=== PATIENT | female | born 1995 | race Caucasian/White ===

== ENCOUNTER 2018-08-30 03:29 | Emergency (ER) | payer OTHER ==
[2018-08-30 03:38] VITALS: BP 119/76; PULSE 110; RESP 20; TEMP 98.7
[2018-08-30] MEDS: LIDOCAINE 1% INJ 10MG/ML (20 ML MDV) SQ ONE (03:59)
[2018-08-30] MEDS: DIPH,PERTUS(ACELL)TETVAC-LF 0.5 ML VIAL IM ONE (03:59)
--- NOTE | 2018-08-30 04:37 | XR ---
EXAM: XR Right Tibia and Fibula, 2 Views CLINICAL HISTORY: ITS.REASON XR Reason: laceration with visible bone TECHNIQUE: Frontal and lateral views of the right tibia and fibula. COMPARISON: No relevant prior studies available. FINDINGS: Bones/joints: Unremarkable. No acute fracture. No dislocation. Soft tissues: Unremarkable. No radiopaque foreign body. IMPRESSION: Normal right tibia and fibula x-rays.
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
== END 2018-08-30 05:37 | disposition home or self-care (01) ==
LOC: EC 03:29
DX: S81.811A Laceration without foreign body, right lower leg, initial encounter (principal); S00.01XA Abrasion of scalp, initial encounter; F17.200 Nicotine dependence, unspecified, uncomplicated; Z23 Encounter for immunization; Z79.899 Other long term (current) drug therapy; W25.XXXA Contact with sharp glass, initial encounter; Y92.009 Unspecified place in unspecified non-institutional (private) residence as the place of occurrence of the external cause
CPT/HCPCS: 73590; 90715; 99283; 12004; 90471; J2001

== ENCOUNTER 2022-06-24 20:34 | Inpatient (IN) | payer MEDICAID, OTHER ==
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
[2022-06-24] MEDS ORDERED: ACETAMINOPHEN TAB 325 MG TAB PO PRN (23:01)
[2022-06-24] MEDS ORDERED: HALOPERIDOL LACTATE 5 MG/ML 1 ML VIAL IM PRN (23:01)
[2022-06-24] MEDS ORDERED: MAGNESIUM HYDROXIDE 2,400 MG/10 ML CUP PO PRN (23:01)
[2022-06-24] MEDS ORDERED: MAG HYDROX/AL HYDROX/SIMETH 30 ML CUP PO PRN (23:01)
[2022-06-24] MEDS ORDERED: LORazepam 2 MG/ML INJ IM PRN (23:05)
[2022-06-24] MEDS ORDERED: haloperidoL 5 MG TAB PO PRN (23:06)
--- NOTE | 2022-06-25 00:21 | P.PN ---
Progress Note - Text Progress Note Date: 06/25/22 unable to evaluate at this time, patient is uncooperative
[2022-06-25 07:24] LABS: ALT 24 U/L (4-34); AST 33 U/L (14-36); African American GFR (CKD) >90 (>60 ml/min/1.73 sqM); Albumin 4.9 g/dL (3.5-5.0); Alkaline Phosphatase 73 U/L (38-126); Anion Gap 10 mmol/L; Bilirubin, Delta 0.2 mg/dL (0.0-0.2); Bilirubin,Unconjugated 0.5 mg/dL (0.0-1.1); Blood Urea Nitrogen 10 mg/dL (7-17); Calcium 9.6 mg/dL (8.4-10.2); Carbon Dioxide 27 mmol/L (22-30); Chloride 106 mmol/L (98-107); Glucose 74 mg/dL (74-99); Non-African American GFR(CKD) >90 (>60 ml/min/1.73 sqM); Potassium 4.7 mmol/L (3.5-5.1); Sodium 143 mmol/L (137-145); Total Bilirubin 0.7 mg/dL (0.2-1.3); Total Protein 8.5 g/dL (6.3-8.2)
[2022-06-25 07:52] LABS: Basophils # (A) 0.1 k/uL (0-0.2); Basophils % (A) 2 %; Eosinophils % (A) 1 %; HCT 41.8 % (34.0-46.0); HGB 13.6 gm/dL (11.4-16.0); Lymphocytes # (A) 1.6 k/uL (1.0-4.8); Lymphocytes % (A) 37 %; MCHC 32.5 g/dL (31.0-37.0); MCV 92.1 fL (80.0-100.0); Mean Platelet Volume 9.8; Monocytes # (A) 0.4 k/uL (0-1.0); Monocytes % (A) 8 %; Neutrophils # (A) 2.2 k/uL (1.3-7.7); Neutrophils % (A) 49 %; Platelet Count 191 k/uL (150-450); RBC 4.54 m/uL (3.80-5.40); RDW 13.1 % (11.5-15.5); WBC 4.5 k/uL (3.8-10.6)
[2022-06-25] MEDS: NICOTINE 14MG/24HR PATCH TRANSDERM SCH (08:54)
[2022-06-25] MEDS: NICOTINE GUM (POLACRILEX) 2 MG GUM BUCCAL PRN ×4 (08:56→18:54)
[2022-06-25 11:33] LABS: Chol/HDL Ratio 2.93 Ratio; LDL Cholesterol,Calculated 110.7 mg/dL (0.0-131.0)
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
[2022-06-25] MEDS ORDERED: SERTRALINE 25 MG TAB PO SCH (21:00)
[2022-06-25] MEDS ORDERED: BACITRACIN OINT 1 EACH PACKET TOPICAL PRN (21:17)
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
[2022-06-26] MEDS: NICOTINE GUM (POLACRILEX) 2 MG GUM BUCCAL PRN ×3 (09:26→16:14)
[2022-06-26] MEDS: NICOTINE 14MG/24HR PATCH TRANSDERM SCH (09:27)
[2022-06-26 12:55] VITALS: BMI 23.1
--- NOTE | 2022-06-26 14:35 | P.PN ---
Progress Note - Text Progress Note Date: 06/26/22 Interval History: Patient was seen today taking part in activities group this afternoon. Patient claims that she was feeling very depressed and "emotional" before coming in the hospital. She explained that she attempted to harm herself by cutting herself. She claims that she does have a good support system at home. She was fairly focused on discharge. She also did complain about the food and states that she is beginning to not eat most things here in the hospital. She states that she s lept fairly well last night after the Zoloft. We talked about the therapeutic dose and the need for increasing to 50 mg which she was okay with. She is not reporting any other side effects at this time. She denies any suicidal or homicidal ideations intent or plan. She denies any auditory or visual hallucinations. She claims that her mood and anxiety have been gradually improving. General Appearance: Patient appears to be stated age, average hygiene and grooming, dressed in casual attire Behavior: Patient is seated without any agitated behavior. Attempts to cooperate. Speech: Patient's speech is fluent and non-pressured. Mood/Affect: Patient reports their mood is improving mildly, affect is congruent and constricted. Suicidality/Homicidality: Patient denies having any homicidal ideation intent or plan. Denies any suicidal ideation, intent or plan. Perceptions: Patient denies any visual hallucinations and denies any auditory hallucinations. Though content/process: There is no evidence of any delusional thought content and thought process is linear and goal-directed. No Discharge. Memory and concentration: AOX3, grossly intact for the purposes of this session Judgment and insight: improving mildly IMPRESSIONS: Major depressive disorder, recurrent, severe Unspecified anxiety disorder Self-harm behaviors nicotine dependence Plan: -Patient continues to meet criteria for inpatient psychiatric admission for symptom stabilization and safety. Patient has signed adult voluntary form and medication consent and was placed in patient's chart. -Medications: increase Zoloft 50 mg QHS for depression/anxiety. -When necessary Ativan and Haldol for agitation/aggression. -NRT - nicotine patch -SW on board for discharge planning. Encouraged the patient to participate in milieu. likely discharge tomorrow back home.
[2022-06-26] MEDS ORDERED: SERTRALINE 50 MG TAB PO SCH (21:00)
[2022-06-27] MEDS: LORazepam 1 MG TAB PO PRN ×2 (02:29→08:19)
[2022-06-27 06:59] VITALS: RESP 16; TEMP 98.2
[2022-06-27] MEDS: NICOTINE 14MG/24HR PATCH TRANSDERM SCH (07:52)
[2022-06-27 08:02] VITALS: BP 126/76; PULSE 117
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
[2022-06-27] MEDS: NICOTINE GUM (POLACRILEX) 2 MG GUM BUCCAL PRN (10:51)
== END 2022-06-27 13:02 | disposition home or self-care (01) | DRG 885 ==
LOC: EC 20:34 → 3MHU 22:58
PROVIDERS: ADMIT Psychiatry & Neurology Psychiatry; ATTEND Psychiatry & Neurology Psychiatry
DX: F33.2 Major depressive disorder, recurrent severe without psychotic features (principal); F17.200 Nicotine dependence, unspecified, uncomplicated; F31.9 Bipolar disorder, unspecified; F41.9 Anxiety disorder, unspecified; S51.812A Laceration without foreign body of left forearm, initial encounter; S61.519A Laceration without foreign body of unspecified wrist, initial encounter; X78.1XXA Intentional self-harm by knife, initial encounter; Z63.72 Alcoholism and drug addiction in family; Z79.899 Other long term (current) drug therapy; Z87.440 Personal history of urinary (tract) infections; Z91.51 Personal history of suicidal behavior; Z20.822 Contact with and (suspected) exposure to COVID-19
CPT/HCPCS: 80053; 80061; 82075; 82248; 83036; 84443; 85025; 87635; 99285

== ENCOUNTER 2022-09-16 19:00 | Emergency (ER) | payer MEDICAID, OTHER ==
[2022-09-16] MEDS ORDERED: ACETAMINOPHEN TAB 500 MG TAB PO STA (19:33)
[2022-09-16] MEDS ORDERED: SODIUM CHLORIDE 0.9% 1,000 ML IV STA (19:33)
--- NOTE | 2022-09-16 20:03 | ED ---
General Adult HPI - General Chief complaint: Vaginal Bleeding Stated complaint: Abd Pain&Vaginal Bleeding,14wks Preg Time Seen by Provider: 09/16/22 19:20 Source: patient, RN notes reviewed, old records reviewed Mode of arrival: ambulatory Limitations: no limitations - History of Present Illness Initial comments: Patient is a 27-year-old female who presents emergency Department complaining of abdominal cramping, vaginal bleeding. Patient states that the pain started a few days ago, however has worsened. Had an episode of spotting yesterday. Denies seeing any clots or tissue in the discharge. Does have a history of previous miscarriage. Patient is history of prior miscarriage. Is approximately 14 weeks this time. Presents after originally presented to another ER where ultrasound wasn't available there. Presents over concern for possible miscarriage. is also complaining of sore throat a mild upper respiratory congestion. is concerned she may have strep throat or viral syndrome. presents for further evaluation of this time. denies any fevers, shortness of breath. denies productive cough. denies chest pain. denies nausea or vomiting that acute. denies diarrhea. is taking vitamins. has been following up with her [employer] on a regular basis. presents for further evaluation at this time. - Related Data Previous Rx's Medication Instructions Recorded Nicotine 14Mg/24Hr Patch [Habitrol] 1 patch TRANSDERM DAILY 14 Days 06/27/22 patch Nicotine Gum (Polacrilex) 2 mg BUCCAL Q2HR PRN 28 Days 06/27/22 [Nicorette] pieceofgum Sertraline [Zoloft] 50 mg PO HS 30 Days tab 06/27/22 Allergies Allergy/AdvReac Type Severity Reaction Status Date / Time Milk Containing Products Allergy Vomiting Verified 06/26/22 09:32 [Dairy] sulfamethoxazole Allergy Rash/Hives Verified 06/24/22 22:15 [From Bactrim] trimethoprim [From Bactrim] Allergy Rash/Hives Verified 06/24/22 22:15 Review of Systems ROS Statement: Those systems with pertinent positive or pertinent negative responses have been documented in the HPI. Review of Systems: CONST: Denies fever EYES: Denies blurry vision ENT: Denies nasal congestion C/V: Denies Chest pain RESP: Denies shortness of breath GI: Endorses lower abdominal cramping. : Denies dysuria SKIN: Denies rash. MSK: Denies joint pain. NEURO: Denies headache ROS Other: All systems not noted in ROS Statement are negative. Past Medical History Past Medical History: No Reported History Additional Past Medical History / Comment(s): frequent UTI History of Any Multi-Drug Resistant Organisms: None Reported Past Surgical History: No Surgical Hx Reported Past Psychological History: Anxiety, Bipolar, Depression Smoking Status: Vaper Past Alcohol Use History: Occasional Past Drug Use History: Marijuana - Past Family History family Additional Family Medical History / Comment(s): alcohol abuse father General Exam - General Exam Comments Initial Comments: General: Appears in no acute distress. HEAD: Normal with no signs of head trauma. EYES: PERRLA, EOMI, conjunctiva normal, no discharge. ENT: Hearing grossly intact, normal oropharynx. RESPIRATORY: Clear breath sounds bilaterally. No wheezes, rales, or rhonchi. C/V: Regular rate and rhythm. Peripheral pulses 2+ intact throughout. S1 and S2 auscultated. ABD: Abdomen soft, nondistended. Mildly tender to palpation suprapubic region. No guarding. No peritoneal signs. No rebound tenderness. No CVA tenderness to percussion. EXT: Normal range of motion, no obvious deformity SKIN: No rashes or lesions observed on exposed skin. NEURO: Alert and oriented 4. Limitations: no limitations Course Vital Signs 09/16/22 09/16/22 19:01 21:28 Temperature 97.9 F 98.9 F Pulse Rate 107 H 86 Respiratory 20 17 Rate Blood Pressure 115/77 107/72 O2 Sat by Pulse 99 97 Oximetry Medical Decision Making - Medical Decision Making Was pt. sent in by a medical professional or institution (, PA, [employer], urgent care, hospital, or shelter...) When possible be specific @ -No Did you speak to anyone other than the patient for history (EMS, parent, family, police, friend...)? What history was obtained from this source @ -No Did you review nursing and triage notes (agree or disagree)? Why? @ -I reviewed and agree with nursing and triage notes Were old charts reviewed (outside hosp., previous admission, EMS record, old EKG, old radiological studies, urgent care reports/EKG's, shelter records)? Report findings @ -No old charts were reviewed Differential Diagnosis (chest pain, altered mental status, abdominal pain women, abdominal pain men, vaginal bleeding, weakness, fever, dyspnea, syncope, headache, dizziness, GI bleed, back pain, seizure, CVA, palpatations, mental health, musculoskeletal)? @ -Miscarriage, UTI, threatened , , upper respiratory infection. This list is not all inclusive. EKG interpreted by me (3pts min.). @ -None done X-rays interpreted by me (1pt min.). @ -None done CT interpreted by me (1pt min.). @ -None done U/S interpreted by me (1pt. min.). @ -Ultrasound interpreted by radiology reveals a viable IUP. estimated gestational age of 13 weeks and 4 days with a heart rate of 156 bpm. What testing was considered but not performed or refused? (CT, X-rays, U/S, labs)? Why? @ -None What meds were considered but not given or refused? Why? @ -None Did you discuss the management of the patient with other professionals (professionals i.e. , PA, [employer], lab, RT, psych nurse, social service director, tacker elastic band, teacher, home lending officer, case packer and sealer)? Give summary @ -No Was smoking cessation discussed for >3mins.? @ -No Was critical care preformed (if so, how long)? @ -No Were there social determinants of health that impacted care today? How? (Homelessness, low income, unemployed, alcoholism, drug addiction, transportation, low edu. Level, literacy, decrease access to med. care, fdc, rehab)? @ -No Was there de-escalation of care discussed even if they declined (Discuss DNR or withdrawal of care, Hospice)? DNR status @ -No What co-morbidities impacted this encounter? (DM, HTN, Smoking, COPD, CAD, Cancer, CVA, ARF, Chemo, Hep., AIDS, mental health diagnosis, sleep apnea, morbid obesity)? @ -None Was patient admitted / discharged? Hospital course, mention meds given and route, prescriptions, significant lab abnormalities, going to OR and other pertinent info. @ -Based on the patient's presentation and physical exam, I'm concerned for possible threatened miscarriage for the patient. She does wear history miscarriages. We will obtain basic labs, type and screen, quantitative beta hCG, as well as a ultrasound. She is also having upper respiratory symptoms and is requesting testing therefore we will obtain suffered swab as well as strep throat swab. She was in agreement this plan. She'll be symptomatically treated with 1 L fluid bolus as well as oral Tylenol for analgesia. Vital signs within acceptable limits. Patient's labs returned but viral swabs and strep throat swab have not yet been sent. Patient has not yet received her medications either due to nursing staff being busy with a complicated patient. I discussed the results with the patient. This includes ultrasound results. Patient's urine shows no obvious infection but appears to be contaminated catch. Patient's hemoglobin is within acceptable limits. Patient's blood type does not require rhogam therapy. as she is Rh +. Discusses the patient. I did offer her to stay for bilateral instructions throat swabs as well as treatment. However we will instead skipped the treatment and she feels fine and provided testing for strep throat and viral swabs. I will call her with results. She is expressing understanding she has a threatened miscarriage at this time. Discussed strict return precautions as well as advised follow-up with her [employer] in the next few days. She was in agreement with this plan. I did contact the patient over the phone and updated her that she does not have strep throat and Covid, flu, RSV were also negative. We discussed that a final diagnosis is threatened miscarriage. I instructed the patient to follow up with their PCP in the next 1-3 days. I explained that the patient should return to the emergency department if they experience any worsening symptoms. Strict return precautions were discussed with the patient. The patient expressed understanding of these instructions. I answered all questions that the patient had. The patient was discharged home in good condition with their prescriptions and follow up information. Undiagnosed new problem with uncertain prognosis? @ -No Drug Therapy requiring intensive monitoring for toxicity (Heparin, Nitro, Insulin, Cardizem)? @ -No Were any procedures done? @ -No Diagnosis/symptom? @ -Threatened miscarriage, 13 weeks Acute, or Chronic, or Acute on Chronic? @ -Acute Uncomplicated (without systemic symptoms) or Complicated (systemic symptoms)? @ -Uncomplicated Side effects of treatment? @ -none Exacerbation, Progression, or Severe Exacerbation] @ -no Poses a threat to life or bodily function? @ -Yes, potentially patient does have a miscarriage can be life-threatening in some situations. - Lab Data Result diagrams: 09/16/22 19:40 09/16/22 19:40 Lab Results 09/16/22 09/16/22 09/16/22 Range/Units 19:40 19:40 19:40 WBC 5.5 (3.8-10.6) k/uL RBC 4.17 (3.80-5.40) m/uL Hgb 12.5 (11.4-16.0) gm/dL Hct 36.9 (34.0-46.0) % MCV 88.5 (80.0-100.0) fL MCH 30.0 (25.0-35.0) pg MCHC 33.9 (31.0-37.0) g/dL RDW 12.1 (11.5-15.5) % Plt Count 185 (150-450) k/uL MPV 9.2 Neutrophils % 68 % Lymphocytes % 25 % Monocytes % 5 % Eosinophils % 2 % Basophils % 0 % Neutrophils # 3.7 (1.3-7.7) k/uL Lymphocytes # 1.3 (1.0-4.8) k/uL Monocytes # 0.3 (0-1.0) k/uL Eosinophils # 0.1 (0-0.7) k/uL Basophils # 0.0 (0-0.2) k/uL Sodium 136 L (137-145) mmol/L Potassium 3.7 (3.5-5.1) mmol/L Chloride 104 (98-107) mmol/L Carbon Dioxide 21 L (22-30) mmol/L Anion Gap 11 mmol/L BUN 7 (7-17) mg/dL Creatinine 0.34 L (0.52-1.04) mg/dL Est GFR (CKD-EPI)AfAm >90 (>60 ml/min/1.73 sqM) Est GFR (CKD-EPI)NonAf >90 (>60 ml/min/1.73 sqM) Glucose 98 (74-99) mg/dL Calcium 9.3 (8.4-10.2) mg/dL HCG, Quant 410104.0 mIU/mL Urine Color Yellow Urine Appearance Clear (Clear) Urine pH 6.0 (5.0-8.0) Ur Specific [place] 1.030 (1.001-1.035) Urine Protein Trace H (Negative) Urine Glucose (UA) Negative (Negative) Urine Ketones 1+ H (Negative) Urine Blood Negative (Negative) Urine Nitrite Negative (Negative) Urine Bilirubin Negative (Negative) Urine Urobilinogen <2.0 (<2.0) mg/dL Ur Leukocyte Esterase Small H (Negative) Urine RBC 2 (0-5) /hpf Urine WBC 1 (0-5) /hpf Ur Squamous Epith Cells 10 H (0-4) /hpf Calcium Oxalate Crystal Occasional H (None) /hpf Urine Bacteria Occasional H (None) /hpf Urine Mucus Many H (None) /hpf Influenza Type A (PCR) (Not Detectd) Influenza Type B (PCR) (Not Detectd) RSV (PCR) (Not Detectd) SARS-CoV-2 (PCR) (Not Detectd) Group A Strep (PCR) (Not Detectd) Blood Type Blood Type Recheck Bld Type Recheck Status Antibody Screen Spec Expiration Date 09/16/22 09/16/22 09/16/22 Range/Units 19:40 21:27 21:27 WBC (3.8-10.6) k/uL RBC (3.80-5.40) m/uL Hgb (11.4-16.0) gm/dL Hct (34.0-46.0) % MCV (80.0-100.0) fL MCH (25.0-35.0) pg MCHC (31.0-37.0) g/dL RDW (11.5-15.5) % Plt Count (150-450) k/uL MPV Neutrophils % % Lymphocytes % % Monocytes % % Eosinophils % % Basophils % % Neutrophils # (1.3-7.7) k/uL Lymphocytes # (1.0-4.8) k/uL Monocytes # (0-1.0) k/uL Eosinophils # (0-0.7) k/uL Basophils # (0-0.2) k/uL Sodium (137-145) mmol/L Potassium (3.5-5.1) mmol/L Chloride (98-107) mmol/L Carbon Dioxide (22-30) mmol/L Anion Gap mmol/L BUN (7-17) mg/dL Creatinine (0.52-1.04) mg/dL Est GFR (CKD-EPI)AfAm (>60 ml/min/1.73 sqM) Est GFR (CKD-EPI)NonAf (>60 ml/min/1.73 sqM) Glucose (74-99) mg/dL Calcium (8.4-10.2) mg/dL HCG, Quant mIU/mL Urine Color Urine Appearance (Clear) Urine pH (5.0-8.0) Ur Specific [place] (1.001-1.035) Urine Protein (Negative) Urine Glucose (UA) (Negative) Urine Ketones (Negative) Urine Blood (Negative) Urine Nitrite (Negative) Urine Bilirubin (Negative) Urine Urobilinogen (<2.0) mg/dL Ur Leukocyte Esterase (Negative) Urine RBC (0-5) /hpf Urine WBC (0-5) /hpf Ur Squamous Epith Cells (0-4) /hpf Calcium Oxalate Crystal (None) /hpf Urine Bacteria (None) /hpf Urine Mucus (None) /hpf Influenza Type A (PCR) Not Detected (Not Detectd) Influenza Type B (PCR) Not Detected (Not Detectd) RSV (PCR) Not Detected (Not Detectd) SARS-CoV-2 (PCR) Not Detected (Not Detectd) Group A Strep (PCR) NOT DETECTED (Not Detectd) Blood Type A Positive Blood Type Recheck A Pos Bld Type Recheck Status No Antibody Screen NEGATIVE Spec Expiration Date 09/19/20222339 Disposition Clinical Impression: Threatened miscarriage Disposition: HOME SELF-CARE Condition: Good Instructions (If sedation given, give patient instructions): Threatened Miscarriage (ED) Is patient prescribed a controlled substance at d/c from ED?: No Referrals: Toshia Martínez [Primary Care Provider] - 1-2 days Time of Disposition: 21:10
[2022-09-16 20:08] LABS: Basophils % (A) 0 %; Eosinophils # (A) 0.1 k/uL (0-0.7); Eosinophils % (A) 2 %; HCT 36.9 % (34.0-46.0); HGB 12.5 gm/dL (11.4-16.0); Lymphocytes # (A) 1.3 k/uL (1.0-4.8); Lymphocytes % (A) 25 %; MCHC 33.9 g/dL (31.0-37.0); MCV 88.5 fL (80.0-100.0); Mean Platelet Volume 9.2; Monocytes # (A) 0.3 k/uL (0-1.0); Monocytes % (A) 5 %; Neutrophils # (A) 3.7 k/uL (1.3-7.7); Neutrophils % (A) 68 %; Platelet Count 185 k/uL (150-450); RBC 4.17 m/uL (3.80-5.40); RDW 12.1 % (11.5-15.5); WBC 5.5 k/uL (3.8-10.6)
[2022-09-16 20:19] LABS: Potassium 3.7 mmol/L (3.5-5.1)
[2022-09-16 20:20] LABS: African American GFR (CKD) >90 (>60 ml/min/1.73 sqM); Anion Gap 11 mmol/L; Blood Urea Nitrogen 7 mg/dL (7-17); Calcium 9.3 mg/dL (8.4-10.2); Carbon Dioxide 21 mmol/L (22-30); Chloride 104 mmol/L (98-107); Glucose 98 mg/dL (74-99); Non-African American GFR(CKD) >90 (>60 ml/min/1.73 sqM); Sodium 136 mmol/L (137-145)
--- NOTE | 2022-09-16 20:25 | US ---
EXAMINATION TYPE: Transabdominal DATE OF EXAM: 09/16/2022 8:13 PM COMPARISON: NONE CLINICAL HISTORY: cramping, spotting, 13.5w preg. Cramping and bleeding EXAM PERFORMED: Transabdominal (TA) EXAM MEASUREMENTS: GESTATIONAL AGE / DATING Physician Established: (13 weeks/4 days) EDC: 03/20/2023 Dates by LMP: Unknown Dates by First Scan: This is 1st scan Dates by Current Scan for: (13 weeks/4 days) EDC: 03/20/2023 MATERNAL ANATOMY Uterus: 8.9 x 8.8 x 10.1cm Right Ovary: 3.0 x 2.2 x 2.0cm Left Ovary: 2.9 x 1.1 x 2.4cm Post CDS / Adnexa: wnl Presence of free fluid: no Presence of corpus luteal cyst: not seen Presence of subchorionic bleed: no GESTATION / SURVEY CRL: 7.4cm (13 weeks/4 days) Yolk Sac (normal less than 6mm): not seen Heart Rate: 156 bpm Rhythm: Normal IUP: Viable IUP Nuchal Translucency 10-14wks (normal less than 3mm): 2.5mm IMPRESSION: Single live intrauterine gestation with ultrasound age 13 weeks 4 days. Additional information as donovan cribed above.
[2022-09-16 20:36] LABS: Appearance,Urine Clear (Clear); Bacteria,Urine Occasional /hpf; Bilirubin,Urine Negative (Negative); Blood,Urine Negative (Negative); Calcium Oxalate Crystals,Urine Occasional /hpf; Color,Urine Yellow; Glucose,Urine (UA) Negative (Negative); Ketones,Urine 1+ (Negative); Leukocyte Esterase,Urine Small (Negative); Mucus,Urine Many /hpf; Nitrite,Urine Negative (Negative); Protein,Urine Trace (Negative); RBC,Urine 2 /hpf (0-5); Squamous Epithelial Cell,Urine 10 /hpf (0-4); Urobilinogen,Urine <2.0 mg/dL (<2.0); WBC,Urine 1 /hpf (0-5)
[2022-09-16 21:29] VITALS: BP 107/72; PULSE 86; RESP 17; TEMP 98.9
== END 2022-09-16 21:47 | disposition home or self-care (01) ==
LOC: EC 19:00
DX: O20.0 Threatened abortion (principal); O99.342 Other mental disorders complicating pregnancy, second trimester; F41.9 Anxiety disorder, unspecified; F31.9 Bipolar disorder, unspecified; O99.322 Drug use complicating pregnancy, second trimester; F12.90 Cannabis use, unspecified, uncomplicated; O99.332 Smoking (tobacco) complicating pregnancy, second trimester; F17.290 Nicotine dependence, other tobacco product, uncomplicated; Z91.011 Allergy to milk products; Z88.2 Allergy status to sulfonamides; Z20.822 Contact with and (suspected) exposure to COVID-19; Z3A.14 14 weeks gestation of pregnancy
CPT/HCPCS: 36415; 76801; 76813; 80048; 81001; 84702; 85025; 86850; 86900; 86901; 87636; 87651; 99284

== ENCOUNTER → 2023-02-07 | Outpatient (CLI) | payer OTHER ==
[2023-02-07 23:35] VITALS: BP 132/79; PULSE 94; RESP 16; TEMP 97.6
--- NOTE | 2023-03-30 09:36 | P.MSEPDOC ---
Presenting Problems - Arrival Data Date of Arrival on Unit: 02/07/23 Time of Arrival on Unit: 20:30 Mode of Transport: Ambulatory - Complaint OB-Reason for Admission/Chief Complaint: Pain Comment: pt presents with complaints of period like cramping continous since around. noon. states feeling is constant and not timeable does not come and go but does feel. belly tightening Medical History - Information : 2 Para: 0 Term: 0 : 0 Abortions: Spontaneous or Elective: 0 Number of Living Children: 0 - Gestational Age Gestational Age by PETR (wks/days): 34 Weeks and 1 Days Review of Systems - Review of Systems Constitutional: No problems Breast: No problems ENT: No problems Cardiovascular: No problems Respiratory: No problems Gastrointestinal: Constipation Genitourinary: No problems Musculoskeletal: No problems Neurological: No problems Skin: No problems Vital Signs - Temperature Temperature: 97.6 F Temperature Source: Tympanic - Pulse Right Pulse Rate: 94 Pulse Assessment Method: Automatic Cuff - Respirations Respiratory Rate: 16 Oxygen Delivery Method: Room Air O2 Sat by Pulse Oximetry: 98 - Blood Pressure Right Arm Blood Pressure: 132/79 Blood Pressure Mean: 96 Blood Pressure Source: Automatic Cuff Medical Screen Scoring - Cervical Exam Dilation (cm): 0 Effacement (%): 0 - Assessment - Baby A Baseline FHR: 140 Heart Rate - NICHD Category: Category I (Normal) NST: Reactive Physician Notification - Physician Notified Physician Notified Date: 02/07/23 Physician Notified Time: 22:00 Physician: Bety Garcia - Notification Comment Comment: Dr Garcia updated with pts reason for vist ( pt had called her prior to coming). of cramping, possible mucus plug, constipation. no contractions palpated or per monitor. cat 1FHT. Reacive NST, VSS. order received for DC home. keep appt for sunday. may take. mirialax and stool softeners over the counter. increase intake fruit and fiber, juices and water. try dried prunes Maternal Triage Index - Maternal Triage Index Presenting for scheduled procedure w/no complaint: No - Stat/Priority 1 Stat Priority 1: No - Urgent/Priority 2 Urgent Priority 2: No - Prompt/Priority 3 Prompt Priority 3: Yes Criteria Met for Priority 3: cramping pain Disposition - Disposition OB Disposition: Discharge to home Discharge Date: 02/07/23 Discharge Time: 22:20 I agree with the RN Medical Screening Exam: Yes Case reviewed; plan agreed upon as documented in EMR&OBIX.: Yes Diagnosis: FALSE LABOR BEFORE 37 COMPLETED WEEKS OF GEST, THIRD TRI
== END | disposition home or self-care (01) ==
LOC: FBPOP 20:30
PROVIDERS: ATTEND Obstetrics & Gynecology Obstetrics
DX: O47.03 False labor before 37 completed weeks of gestation, third trimester (principal); O99.333 Smoking (tobacco) complicating pregnancy, third trimester; F17.200 Nicotine dependence, unspecified, uncomplicated; Z3A.34 34 weeks gestation of pregnancy; Z88.2 Allergy status to sulfonamides; Z88.1 Allergy status to other antibiotic agents; Z91.011 Allergy to milk products
CPT/HCPCS: 59025; G0463; 99213

== ENCOUNTER 2023-02-13 15:56 | Outpatient (CLI) | payer OTHER ==
[2023-02-13 17:22] VITALS: BP 126/79; PULSE 105; RESP 18; TEMP 97.1
--- NOTE | 2023-02-23 15:33 | P.MSEPDOC ---
Presenting Problems - Arrival Data Date of Arrival on Unit: 02/13/23 Time of Arrival on Unit: 15:56 Mode of Transport: Ambulatory - Complaint OB-Reason for Admission/Chief Complaint: Pain Comment: Pt c/o sharp abdominal pain at fundus for last 5-6 hours Medical History - Information : 2 Para: 0 Term: 0 : 0 Abortions: Spontaneous or Elective: 2 Number of Living Children: 0 - Gestational Age Gestational Age by PETR (wks/days): 35 Weeks and 0 Days Review of Systems - Review of Systems Constitutional: No problems Breast: No problems ENT: No problems Cardiovascular: No problems Respiratory: No problems Gastrointestinal: No problems Genitourinary: No problems Musculoskeletal: No problems Neurological: No problems Skin: No problems Vital Signs - Temperature Temperature: 97.1 F Temperature Source: Temporal Artery Scan - Pulse Right Pulse Oximetery Pulse Rate: 105 Pulse Assessment Method: Pulse Oximetry - Respirations Respiratory Rate: 18 Oxygen Delivery Method: Room Air O2 Sat by Pulse Oximetry: 98 - Blood Pressure Right Arm Blood Pressure: 126/79 Blood Pressure Mean: 94 Blood Pressure Source: Automatic Cuff Medical Screen Scoring - Assessment - Baby A Baseline FHR: 145 Heart Rate - NICHD Category: Category I (Normal) NST: Reactive Physician Notification - Physician Notified Physician Notified Date: 02/13/23 Physician Notified Time: 16:27 Physician: Bhumi Maxwell Order Received: Yes - Notification Comment Comment: Pt is 35 and 0. c/o sharp abdominal pain at fundus for last 5-6 hours. C/o watery, warm, moist, foul smelling discharge for the past week. Pt states she has a history of BV early in her and that the discharge is similar. NSt reactive, no contractions felt per palpation or monitor Maternal Triage Index - Maternal Triage Index Presenting for scheduled procedure w/no complaint: No - Stat/Priority 1 Stat Priority 1: No - Urgent/Priority 2 Urgent Priority 2: No - Prompt/Priority 3 Prompt Priority 3: No - Non-Urgent/Priority 4 Non-Urgent Priority 4: Yes Criteria Met for Priority 4: c/o sharp abdominal pain at fundus for last 5-6 hours. C/o watery, warm, moist, foul smelling discharge for the past week. Disposition - Disposition OB Disposition: Discharge to home Discharge Date: 02/13/23 Discharge Time: 16:32 I agree with the RN Medical Screening Exam: Yes Physician's MSE Comment: I have neither seen nor examined the patient Case reviewed; plan agreed upon as documented in EMR&OBIX.: Yes Diagnosis: RELATED CONDITIONS, UNSPECIFIED, THIRD TRIMESTER
== END 2023-02-13 16:32 | disposition home or self-care (01) ==
LOC: FBPOP 15:56
PROVIDERS: ATTEND Obstetrics & Gynecology
DX: O26.893 Other specified pregnancy related conditions, third trimester (principal); O99.333 Smoking (tobacco) complicating pregnancy, third trimester; F17.200 Nicotine dependence, unspecified, uncomplicated; R10.9 Unspecified abdominal pain; Z3A.35 35 weeks gestation of pregnancy; Z88.2 Allergy status to sulfonamides; Z88.8 Allergy status to other drugs, medicaments and biological substances; Z91.011 Allergy to milk products
CPT/HCPCS: 59025; G0463; 99213

== ENCOUNTER 2023-02-28 15:40 | Inpatient (IN) | payer OTHER ==
[2023-02-28] MEDS ORDERED: miSOPROStoL 200 MCG TAB PO PRN (16:34)
[2023-02-28] MEDS ORDERED: TRANEXAMIC 1,000 MG/100ML-NACL 1,000 MG in EMPTY BAG 1 BAG IV PRN (16:34)
[2023-02-28] MEDS ORDERED: OXYTOCIN 10 UNIT/ML 1 ML VIAL IM PRN (16:34)
[2023-02-28] MEDS ORDERED: CARBOPROST TROMETHAMINE 250 MCG/ML 1 ML AMP IM PRN (16:34)
[2023-02-28] MEDS ORDERED: TERBUTALINE 1 MG/ML VIAL SQ PRN (16:34)
[2023-02-28] MEDS ORDERED: METHYLERGONOVINE 0.2 MG/ML 1 ML AMP IM PRN (16:34)
[2023-02-28] MEDS ORDERED: LIDOCAINE 0.5% (PF) 5 MG/ML (50 ML SDV) SQ PRN (16:34)
[2023-02-28] MEDS: LACTATED RINGERS 1,000 ML IV SCH ×2 (16:40→21:49)
[2023-02-28] MEDS ORDERED: OXYTOCIN 30 UNITS/500 ML NS 30 UNIT in SALINE 1 500ML.BAG IV SCH (16:45)
[2023-02-28 17:28] LABS: Basophils % (A) 0 %; Eosinophils # (A) 0.1 k/uL (0-0.7); Eosinophils % (A) 1 %; HCT 30.3 % (34.0-46.0); HGB 9.8 gm/dL (11.4-16.0); Hypochromasia Moderate; Lymphocytes # (A) 1.3 k/uL (1.0-4.8); Lymphocytes % (A) 14 %; MCH 26.4 pg (25.0-35.0); MCHC 32.3 g/dL (31.0-37.0); MCV 81.6 fL (80.0-100.0); Mean Platelet Volume 10.5; Monocytes # (A) 0.3 k/uL (0-1.0); Monocytes % (A) 4 %; Neutrophils # (A) 7.3 k/uL (1.3-7.7); Neutrophils % (A) 80 %; Platelet Count 275 k/uL (150-450); Poikilocytosis Slight; RBC 3.72 m/uL (3.80-5.40); RDW 14.6 % (11.5-15.5); WBC 9.1 k/uL (3.8-10.6)
--- NOTE | 2023-02-28 17:33 | P.HPOB ---
History of Present Illness H&P Date: 02/28/23 Chief Complaint: Medical induction for Intrahepatic Cholestasis of Ms. Anna is a 27 year old at 37 weeks and 1 day with EDC of 03/20/2023 (by LMP c/w 8 weeks US) presenting for medical induction of labor for newly diagnosed Intraheptaic Cholestasis of . The patient was seen in the office on Sunday and complained of full-body pruritus that kept her awake at night and did not spare the palms and soles. Bile acids were checked and found to be elevated to 17. Additionally, the patient has a history of anxiety and depression not on any medications. The has been otherwise uncomplicated. The fetus is estimated in the 44%ile by a 33 week US. Obstetric history: 1st trimester SAB Maternal work-up: blood type A positive, antibody screen negative, rubella UNKNOWN, VDRL non-reactive, HBsAg negative, HIV negative, gonorreah neg ative, chlamydia negative, 1 hour GTT within normal limits. TDap declined. GBS still pending. Past Medical History Past Medical History: No Reported History Additional Past Medical History / Comment(s): frequent UTI History of Any Multi-Drug Resistant Organisms: None Reported Past Surgical History: No Surgical Hx Reported Past Psychological History: Anxiety, Bipolar, Depression Smoking Status: Former smoker Past Alcohol Use History: Occasional Past Drug Use History: Marijuana - Past Family History family Additional Family Medical History / Comment(s): alcohol abuse father Medications and Allergies Home Medications Medication Instructions Recorded Confirmed Type Vit No.179/Iron/Folic 02/28/23 History [ Tablet] diphenhydrAMINE [Benadryl] 50 mg PO DIRECTED PRN 02/28/23 02/28/23 History Allergies Allergy/AdvReac Type Severity Reaction Status Date / Time sulfamethoxazole Allergy Severe Rash/Hives Verified 02/28/23 16:09 [From Bactrim] trimethoprim [From Bactrim] Allergy Severe Rash/Hives Verified 02/28/23 16:09 Milk Containing Products Allergy Vomiting Verified 02/28/23 16:09 [Dairy] Exam Intake and Output 02/28/23 02/28/23 02/28/23 06:59 14:59 22:59 Other: Weight 72.575 kg Focused physical exam is performed. This is a healthy-appearing in no apparent distress. Abdomen is gravid and non-tender. Cervical exam is closed, long, and high. Cooks catheter is placed through the cervix and 60cc are inserted into each balloon. Extremities are non-tender and non-edematous. heart tones are reactive and reassuring. Tocometer is not graphing any contractions. Assessment and Plan Assessment: 27 year old at 37 weeks and 1 day being medically induced for ICP Plan: Admit, NPO, mIVF, cooks catheter x12 hours, low-dose pitocin until cooks is removed, IV nubain prn. GBS unknown, will not treat unless rupture for more than 18 hours as patient has not risk factors otherwise. Continuous EFM and tocometer. Close monitoring of patient. Time with Patient: Less than 30 (20 minutes)
[2023-02-28] MEDS: NALBUPHINE 10 MG/ML (10 ML MDV) IV PRN ×2 (20:07→23:52)
[2023-02-28] MEDS: diphenhydrAMINE 50 MG/ML 1 ML VIAL IVP PRN (21:49)
[2023-03-01] MEDS: NALBUPHINE 10 MG/ML (10 ML MDV) IV PRN ×2 (04:04→08:19)
[2023-03-01] MEDS ORDERED: fentaNYL (PF) 50 MCG/ML 5 ML AMP ONE (08:58)
[2023-03-01] MEDS ORDERED: ROPIVACAINE 5 MG/ML 30 ML VIAL ONE (08:58)
[2023-03-01] MEDS ORDERED: SODIUM CHLORIDE 0.9% 250 ML BAG ONE (08:58)
[2023-03-01] MEDS: LACTATED RINGERS 1,000 ML IV SCH ×2 (10:00→17:57)
[2023-03-01] MEDS: AMPICILLIN 2,000 MG in SODIUM CHLORIDE 0.9% 100 ML IVPB SCH (19:12)
[2023-03-01] MEDS ORDERED: GENTAMICIN 300 MG in SODIUM CHLORIDE 0.9% 100 ML IVPB SCH (20:30)
--- NOTE | 2023-03-01 21:17 | P.PROBDLV ---
Vaginal Delivery Note - . Vaginal Delivery Note: DATE OF SERVICE: 03/01/2023 PROCEDURE: Normal Vaginal Delivery ATTENDING: Dr. Bhumi Maxwell MD ESTIMATED BLOOD LOSS: 300 mL FINDINGS: VFI, Apgars 8/9. Weight 6 pounds and 4 ounces (2850 grams) PROCEDURE: Ms. Anna is a 27 year old at 37 weeks and 2 days who presented to labor and delivery for medical induction of labor for Intrahepatic Cholestasis of . The has been otherwise uncomplicated. For further details, please review the admitting H&P. A cooks catheter was placed for 12 hours with oxytocin. Once removed, AROM was performed at 827 revealing clear fluid. The patient received epidural anesthesia per her request. The deyvi ent spiked a fever of 100.5 and the heart tones became tachycardic. IV Ampicillin and Getamicin were given for chorioamnionitis. The patient was completely dilated at 1826. She pushed effectively for approximately 2 hours. The head crowned over the perineum followed by shoulders and body of the infant. A viable female infant was delivered at 2046. The infant was placed on the maternal abdomen and bulb suctioned. Cord was clamped and cut after a 30- second delay. Placenta was delivered whole with gentle cord traction at 2049. Oxytocin was started to facilitate uterine tone. Uterine fundus was found to be firm and below the umbilicus upon fundal massage. Thorough examination of the cervix, vagina, periurethral area, and perineum revealed a midline second degree laceration. This laceration was repaired with 2-0 Vicryl in the usual fashion. The patient is stable and allowed to begin the bonding process. Patient stable .
[2023-03-01] MEDS ORDERED: BENZOCAINE/MENTHOL SPRAY 1 GM/SPRAY AEROSOL TOPICAL PRN (21:18)
[2023-03-01] MEDS ORDERED: diphenhydrAMINE 50 MG/ML 1 ML VIAL IVP PRN ×2 (21:18)
[2023-03-01] MEDS ORDERED: diphenhydrAMINE 25 MG CAP PO PRN (21:18)
[2023-03-01] MEDS ORDERED: LANOLIN CREAM 5 GM TUBE TOPICAL PRN (21:18)
[2023-03-01] MEDS ORDERED: HYDROCORTISONE 2.5% RECTAL CREAM 30 GM TUBE RECTAL PRN (21:18)
[2023-03-01] MEDS ORDERED: ZOLPIDEM 5 MG TAB PO PRN (21:18)
[2023-03-01] MEDS ORDERED: SIMETHICONE 80 MG CHEWABLE PO PRN (21:18)
[2023-03-01] MEDS ORDERED: diphenhydrAMINE 50 MG CAP PO PRN (21:18)
[2023-03-01] MEDS: IBUPROFEN 600 MG TAB PO PRN (22:41)
[2023-03-02] MEDS: diphenhydrAMINE 50 MG/ML 1 ML VIAL IVP PRN (00:08)
[2023-03-02] MEDS: AMPICILLIN 2,000 MG in SODIUM CHLORIDE 0.9% 100 ML IVPB SCH ×2 (01:36→13:26)
[2023-03-02] MEDS: IBUPROFEN 600 MG TAB PO PRN ×4 (04:44→23:53)
[2023-03-02 05:58] LABS: Basophils % (A) 0 %; Eosinophils # (A) 0.1 k/uL (0-0.7); Eosinophils % (A) 0 %; HCT 22.3 % (34.0-46.0); Hypochromasia Moderate; Lymphocytes # (A) 1.1 k/uL (1.0-4.8); Lymphocytes % (A) 4 %; MCH 26.1 pg (25.0-35.0); MCV 81.5 fL (80.0-100.0); Mean Platelet Volume 10.7; Monocytes # (A) 1.1 k/uL (0-1.0); Monocytes % (A) 4 %; Neutrophils # (A) 21.8 k/uL (1.3-7.7); Neutrophils % (A) 90 %; Platelet Count 191 k/uL (150-450); Poikilocytosis Slight; RBC 2.74 m/uL (3.80-5.40); RDW 15.2 % (11.5-15.5); WBC 24.4 k/uL (3.8-10.6)
[2023-03-02 06:16] LABS: HGB 7.1 gm/dL (11.4-16.0)
[2023-03-02] MEDS: SENNOSIDES-DOCUSATE SODIUM 1 EACH TAB PO SCH ×2 (07:48→20:29)
--- NOTE | 2023-03-02 09:25 | P.PNOBGVD ---
Subjective - Subjective Principal diagnosis: s/p vaginal delivery complicated by chorioamnionitis Interval history: The patient fell onto her knees from the toilet last night around 0200. She did not suffer any injuries and feels fine. However, she has lingering numbness and weakness in bilateral legs especially at the knees. She feels as though she cannot walk or bear weight on the legs. She reports minimal lochia, passing flatus, voiding without difficulty, and eating/drinking without nausea or vomiting. She is her female . She denies lightheadedness with ambulation. She denies chest pain, shortness of breathing, fevers, or chills overnight. She denies pain. Trace swelling in bilateral feet. Patient reports: Reports appetite normal, Reports voiding normally, Reports pain well controlled, Reports other (bilateral leg weakness, cannot bear weight or ambulate) : doing well, nursing well Objective - Latest Vital Signs Latest vital signs: Vital Signs Temp Pulse Resp BP Pulse Ox 03/02/23 07:35 97.7 F 111 H 16 123/82 03/02/23 04:00 97.5 F L 104 H 16 112/71 97 03/02/23 00:00 98.6 F 115 H 16 116/73 96 03/01/23 23:15 97.5 F L 120 H 16 115/61 03/01/23 22:43 123 H 16 117/67 03/01/23 22:14 117 H 16 122/71 03/01/23 22:00 122 H 16 119/70 03/01/23 21:45 126 H 16 123/61 03/01/23 21:29 120 H 16 124/65 03/01/23 21:15 99.1 F 116 H 16 131/80 Intake and Output 03/01/23 03/02/23 03/02/23 22:59 06:59 14:59 Output Total 300 1405 Balance -300 -1405 Output: Urine 1325 Output, Quantitative 300 80 Blood Loss Other: # Voids 1 1 - Exam Abdomen: Present: normal appearance, soft Uterus: Present: normal, firm - Labs Labs: Abnormal Lab Results - Last 24 Hours (Table) 03/02/23 Range/Units 05:47 WBC 24.4 H (3.8-10.6) k/uL RBC 2.74 L (3.80-5.40) m/uL Hgb 7.1 L D (11.4-16.0) gm/dL Hct 22.3 L (34.0-46.0) % Neutrophils # 21.8 H (1.3-7.7) k/uL Monocytes # 1.1 H (0-1.0) k/uL Assessment and Plan Assessment: 27 year old PPD#1 s/p vaginal delivery complicated by chorioamnionitis after induction of labor for ICP Plan: 1. . Meeting milestones appropriately. 2. Bilateral leg weakness, unable to bear weight. Normal muscle strength while testing in bed on b/l legs. Continue to monitor. Discussed possible nerve injury from hyperflexion of the legs while pushing, possible need for physical therapy outpatient if symptoms do no improve. 3. Rash on abdomen, upper arms, thighs that developed on first day of admission while induction was starting. Will r/x hydrocortisone cream. 4. Female . Doing well at bedside. Has had 2 CBCs 2/2 chorioamnionitis of mother during labor. Continue to monitor. Has been afebrile and no leukocytosis. 5. Chorioamnionitis - resolved, s/p Amp 2g q6h x2 doses and 5mg/kg Gent qDay x1 dose 6. Acute blood loss anemia - ferrous sulfate TID while inpatient > qOTHERday on discharge Dispo: Anticipate discharge home tomorrow.
[2023-03-02] MEDS: HYDROCORTISONE 1% CREAM 30 GM TUBE TOPICAL SCH ×4 (11:18→22:00)
[2023-03-02] MEDS: ACETAMINOPHEN TAB 325 MG TAB PO PRN ×2 (13:04→20:29)
[2023-03-02] MEDS: FERROUS SULFATE 325 MG TAB PO SCH (13:04)
[2023-03-02] MEDS: LACTATED RINGERS 1,000 ML IV SCH (13:18)
[2023-03-02] MEDS: ursodioL 300 MG CAP PO SCH (20:29)
[2023-03-02] MEDS: hydrOXYzine pamoate 25 MG CAP PO PRN (23:54)
[2023-03-03] MEDS: ACETAMINOPHEN TAB 325 MG TAB PO PRN (04:48)
[2023-03-03] MEDS: hydrOXYzine pamoate 25 MG CAP PO PRN ×2 (06:43→12:39)
[2023-03-03] MEDS ORDERED: ursodioL 300 MG CAP PO SCH (07:30)
[2023-03-03] MEDS: IBUPROFEN 600 MG TAB PO PRN (09:55)
[2023-03-03] MEDS: SENNOSIDES-DOCUSATE SODIUM 1 EACH TAB PO SCH (09:55)
[2023-03-03] MEDS: ursodioL 300 MG CAP PO SCH (09:55)
[2023-03-03] MEDS: HYDROCORTISONE 1% CREAM 30 GM TUBE TOPICAL SCH ×2 (10:14→14:34)
--- NOTE | 2023-03-03 10:14 | P.DS ---
Providers Date of admission: 02/28/23 15:40 Expected date of discharge: 03/03/23 Attending physician: Bhumi Maxwell MD Primary care physician: Stated None - Discharge Diagnosis(es) (1) Chorioamnionitis Current Visit: Yes Status: Acute (2) Encounter for induction of labor Current Visit: Yes Status: Acute (3) Intrahepatic cholestasis of Current Visit: Yes Status: Acute (4) Normal vaginal delivery Current Visit: Yes Status: Acute (5) Second degree perineal laceration Current Visit: Yes Status: Acute (6) Anxiety disorder Current Visit: No Status: Acute Priority: Medium (7) Major depressive disorder, recurrent severe without psychotic features Current Visit: No Status: Acute Priority: High Hospital Course: 27-year-old at 37 and one sevenths weeks that was needed to labor and delivery for induction of labor secondary to intrahepatic cholestasis of . Patient was seen in the office with noted for body urticaria and elevated bile acids at 17. Patient was admitted for induction of labor with Cook's catheter. Patient progressed through labor undergoing amniotomy. Patient did develop a maternal fever during labor, tachycardia was appreciated. Antibiotics were begun. Patient progressed to complete began pushing and had a normal spontaneous vaginal delivery of a viable female infant at 2046, weight of 6 pounds 4.5 ounces, Apgars of 8 and 9 at one and 5 minutes respectively. Patient has continued to struggle with urticaria . Patient was started on Vistaril last evening and states she did get some sleep and is feeling better this morning. has been monitored for infection secondary to maternal fever tachycardia and chorioamnionitis during delivery. Currently culture is negative for the at 24 hours. Mom had a rise in her white blood cell count on 03/02-, repeat CBC will be done prior to discharge. Patient states overall she is feeling okay, she is noting some lower extremity weakness, discussion regarding position of pushing and muscle soreness are reviewed with patient. Lochia is minimal to moderate, she is breast-feeding. She is tolerating a regular diet without nausea or vomiting. Patient Condition at Discharge: Good Plan - Discharge Summary New Discharge Prescriptions: New Ferrous Sulfate [Iron (65 MG Elemental)] 325 mg PO DAILY #30 tab Ibuprofen [Motrin] 600 mg PO Q6HR PRN #30 tab PRN Reason: Mild Pain (Scale 1 To 3) Acetaminophen Tab [Tylenol] 650 mg PO Q6H PRN #30 tab PRN Reason: Mild Pain (Scale 1 To 3) No Action diphenhydrAMINE [Benadryl] 50 mg PO DIRECTED PRN PRN Reason: Itching Vit No.179/Iron/Folic [ Tablet] Discharge Medication List Vit No.179/Iron/Folic [ Tablet] 02/28/23 [History] diphenhydrAMINE [Benadryl] 50 mg PO DIRECTED PRN 02/28/23 [History] Acetaminophen Tab [Tylenol] 650 mg PO Q6H PRN #30 tab 03/02/23 [Rx] Ferrous Sulfate [Iron (65 MG Elemental)] 325 mg PO DAILY #30 tab 03/02/23 [Rx] Ibuprofen [Motrin] 600 mg PO Q6HR PRN #30 tab 03/02/23 [Rx] Follow up Appointment(s)/Referral(s): Bhumi Maxwell MD [STAFF PHYSICIAN] - 6 Weeks Patient Instructions/Handouts: Vaginal Delivery (GEN), Vaginal Delivery (DC) Activity/Diet/Wound Care/Special Instructions: Instructions 1. Do not begin any exercise program for 3 weeks. 2. Do not resume sexual relations for 6 weeks or longer if uncomfortable. 3. You may take tub baths or showers at any time. 4. You may use tampons if desired after 6 weeks. 5. Keep any areas repaired with stitches clean and dry. 6. If you are not nursing, wear a good fitting, supportive bra during the day and limit fluid intake for at least 1 week to prevent breast engorgement. 7. Call the office, , within the next week to make appointment for your 6 week checkup if it has not already been made. 8. Report any of the following occurrences to the doctor promptly: a. Heavy, excessive bleeding b. Chills, fever c. Burning or frequency of urination d. Pain or redness and breasts if nursing e. Increasing pain or swelling of vulva (stitches). In addition to the above instructions, the following additional should be follow ed: 1. No heavy lifting or straining (exercising) until after 6 week checkup. 2. Keep abdominal incision clean and dry: You may wear a dressing if more comfortable. 3. Make office appointment for 2 weeks after delivery date. Discharge Disposition: HOME SELF-CARE
[2023-03-03 10:27] VITALS: RESP 18
[2023-03-03 10:51] LABS: HCT 25.6 % (34.0-46.0); Hypochromasia Marked; MCH 25.8 pg (25.0-35.0); MCHC 31.2 g/dL (31.0-37.0); MCV 82.6 fL (80.0-100.0); Mean Platelet Volume 10.5; Platelet Count 226 k/uL (150-450); Poikilocytosis Slight; RDW 15.3 % (11.5-15.5); WBC 15.1 k/uL (3.8-10.6)
[2023-03-03] MEDS: FERROUS SULFATE 325 MG TAB PO SCH (12:39)
[2023-03-03 16:52] VITALS: BP 126/80; PULSE 112; TEMP 98.4
== END 2023-03-03 18:00 | disposition home or self-care (01) | DRG 560 ==
LOC: 4FBP 15:40
PROVIDERS: ADMIT Obstetrics & Gynecology; ATTEND Obstetrics & Gynecology
PROC: 10E0XZZ Delivery of Products of Conception, External Approach (ICD-10-PCS; principal; 2023-02-28)
PROC: 0KQM0ZZ Repair Perineum Muscle, Open Approach (ICD-10-PCS; 2023-02-28)
PROC: 10907ZC Drainage of Amniotic Fluid, Therapeutic from Products of Conception, Via Natural or Artificial Opening (ICD-10-PCS; 2023-02-28)
PROC: 3E033VJ Introduction of Other Hormone into Peripheral Vein, Percutaneous Approach (ICD-10-PCS; 2023-02-28)
PROC: 10907ZC Drainage of Amniotic Fluid, Therapeutic from Products of Conception, Via Natural or Artificial Opening (ICD-10-PCS; 2023-02-28)
PROC: 3E0DXGC Introduction of Other Therapeutic Substance into Mouth and Pharynx, External Approach (ICD-10-PCS; 2023-02-28)
PROC: 0U7C7ZZ Dilation of Cervix, Via Natural or Artificial Opening (ICD-10-PCS; 2023-02-28)
DX: O26.62 Liver and biliary tract disorders in childbirth (principal); O76 Abnormality in fetal heart rate and rhythm complicating labor and delivery; F31.9 Bipolar disorder, unspecified; O70.1 Second degree perineal laceration during delivery; F41.9 Anxiety disorder, unspecified; O41.1230 Chorioamnionitis, third trimester, not applicable or unspecified; O90.81 Anemia of the puerperium; D62 Acute posthemorrhagic anemia; O99.284 Endocrine, nutritional and metabolic diseases complicating childbirth; O99.344 Other mental disorders complicating childbirth; E78.79 Other disorders of bile acid and cholesterol metabolism; O99.72 Diseases of the skin and subcutaneous tissue complicating childbirth; L50.9 Urticaria, unspecified; K76.89 Other specified diseases of liver; Z37.0 Single live birth; Z3A.37 37 weeks gestation of pregnancy; Z87.440 Personal history of urinary (tract) infections; Z87.891 Personal history of nicotine dependence; Z88.2 Allergy status to sulfonamides; Z91.011 Allergy to milk products
CPT/HCPCS: 85025; 85027; 86762; 86850; 86900; 86901

== ENCOUNTER 2023-09-17 17:24 | Emergency (ER) | payer OTHER ==
[2023-09-17] MEDS: KETOROLAC 15 MG/ML 1 ML VIAL IVP STA (17:53)
[2023-09-17] MEDS: DEXAMETHASONE SOD PHOSPHATE 10 MG/ML 1 ML VIAL IVP STA (17:54)
[2023-09-17] MEDS: SODIUM CHLORIDE 0.9% 1,000 ML IV STA (17:55)
[2023-09-17 18:06] LABS: Basophils % (A) 1 %; Eosinophils # (A) 0.1 k/uL (0-0.7); Eosinophils % (A) 2 %; HCT 42.1 % (34.0-46.0); HGB 13.6 gm/dL (11.4-16.0); Lymphocytes # (A) 1.5 k/uL (1.0-4.8); Lymphocytes % (A) 30 %; MCH 29.1 pg (25.0-35.0); MCHC 32.2 g/dL (31.0-37.0); MCV 90.3 fL (80.0-100.0); Mean Platelet Volume 9.9; Monocytes # (A) 0.2 k/uL (0-1.0); Monocytes % (A) 4 %; Neutrophils # (A) 3.3 k/uL (1.3-7.7); Neutrophils % (A) 62 %; Platelet Count 196 k/uL (150-450); RBC 4.66 m/uL (3.80-5.40); WBC 5.2 k/uL (3.8-10.6)
--- NOTE | 2023-09-17 18:07 | ED ---
General Adult HPI - General Chief complaint: Recheck/Abnormal Lab/Rx Stated complaint: Abdominal Pain Time Seen by Provider: 09/17/23 17:33 Source: patient, RN notes reviewed Mode of arrival: ambulatory Limitations: no limitations - History of Present Illness Initial comments: This is a 28-year-old female who presents to the emergency department for body aches. Patient is approximately 6 months . States that over the last several days she has had aches and pains to the joints in her legs, upper extremities, and rib cage. States that the pain in her ribs seems to wrap around into the back as well. Denies any upper respiratory symptoms. She did have problems with achiness in her legs shortly after giving that seemed to subside. Pain is not worse in any particular area of her body. Denies any swelling or redness in any of her extremities. She has no personal history of any autoimmune issues, but states that she has a family history of autoimmune problems in her mother. States that her mother has arthritis, unsure if this is rheumatoid or another kind. Her mother also had Lyme disease. - Related Data Home Medications Medication Instructions Recorded Confirmed Vit No.179/Iron/Folic 02/28/23 [ Tablet] diphenhydrAMINE [Benadryl] 50 mg PO DIRECTED PRN 02/28/23 02/28/23 Previous Rx's Medication Instructions Recorded Acetaminophen Tab [Tylenol] 650 mg PO Q6H PRN #30 tab 03/02/23 Ferrous Sulfate [Iron (65 MG 325 mg PO DAILY #30 tab 03/02/23 Elemental)] Ibuprofen [Motrin] 600 mg PO Q6HR PRN #30 tab 03/02/23 Baclofen 10 mg PO TID PRN #20 tab 09/17/23 Levofloxacin [Levaquin] 750 mg PO DAILY 5 Days #5 tab 09/17/23 metroNIDAZOLE [Flagyl] 500 mg PO TID 7 Days #21 tab 09/17/23 Amoxicillin 500 mg PO Q8H #30 capsule 09/18/23 Allergies Allergy/AdvReac Type Severity Reaction Status Date / Time sulfamethoxazole Allergy Severe Rash/Hives Verified 09/17/23 17:31 [From Bactrim] trimethoprim [From Bactrim] Allergy Severe Rash/Hives Verified 09/17/23 17:31 Milk Containing Products Allergy Vomiting Verified 09/17/23 17:31 (Dairy) [Dairy] Review of Systems ROS Statement: Those systems with pertinent positive or pertinent negative responses have been documented in the HPI. ROS Other: All systems not noted in ROS Statement are negative. Past Medical History Past Medical History: No Reported History Additional Past Medical History / Comment(s): frequent UTI History of Any Multi-Drug Resistant Organisms: None Reported Past Surgical History: No Surgical Hx Reported Past Psychological History: Anxiety, Bipolar, Depression Smoking Status: Former smoker Past Alcohol Use History: Occasional Past Drug Use History: Marijuana - Past Family History family Additional Family Medical History / Comment(s): alcohol abuse father General Exam Limitations: no limitations General appearance: alert, in no apparent distress Head exam: Present: atraumatic, normocephalic, normal inspection Respiratory exam: Present: normal lung sounds bilaterally. Absent: respiratory distress, wheezes, rales, rhonchi, stridor Cardiovascular Exam: Present: regular rate, normal rhythm, normal heart sounds. Absent: systolic murmur, diastolic murmur, rubs, gallop, clicks GI/Abdominal exam: Present: soft, normal bowel sounds. Absent: distended, tenderness, guarding, rebound, rigid Neurological exam: Present: alert, oriented X3, CN II-XII intact Psychiatric exam: Present: normal affect, normal mood Skin exam: Present: warm, dry, intact, normal color. Absent: rash Course Vital Signs 09/17/23 09/17/23 09/17/23 17:29 18:31 21:03 Temperature 98.1 F 98.1 F 98 F Pulse Rate 76 93 90 Respiratory 16 18 18 Rate Blood Pressure 122/81 113/80 115/82 O2 Sat by Pulse 98 99 99 Oximetry Medical Decision Making - Medical Decision Making This is a 28 year old female who presents to the emergency department for joint pain. Was pt. sent in by a medical professional or institution? @ -No Did you speak to anyone other than the patient for history? @ -No Did you review nursing and triage notes? @ -Yes, and I agree, it is accurate with regards to the patient's symptoms. Were old charts reviewed? @ -No Differential Diagnosis? @ -Differential Joint Pain: Autoimmune problem, electrolyte insufficiency, viral illness, this is not meant to be an all-inclusive list. EKG interpreted by me (3pts min.)? @ -Not obtained X-rays interpreted by me (1pt min.)? @ -Chest x-ray obtained. My interpretation identifies a right middle lobe infiltrate. X-ray of the thoracic and lumbar spine obtained. My interpretation identifies no acute fractures. CT interpreted by me (1pt min.)? @ -Not obtained U/S interpreted by me (1pt. min.)? @ -Not obtained What testing was considered but not performed? (CT, X-rays, U/S, labs)? Why? @ -None What meds were considered but not given? Why? @ -None Did you discuss the management of the patient with other professionals? @ -No Did you reconcile home meds? @ -No Was smoking cessation discussed for >3mins.? @ -No Was critical care preformed (if so, how long)? @ -No Were there social determinants of health that impacted care today? How? (Homelessness, low income, unemployed, alcoholism, drug addiction, transportation, low edu. Level, literacy, decrease access to med. care, group home, rehab)? @ -No Was there de-escalation of care discussed even if they declined? (Discuss DNR or withdrawal of care, Hospice)? @ -No What co-morbidities impacted this encounter? (DM, HTN, Smoking, COPD, CAD, Cancer, CVA, Hep., AIDS, mental health diagnosis, sleep apnea, morbid obesity)? @ -None Was patient admitted / discharged? @ -Discharged. Lab work was fairly unremarkable. She had a low TSH however free T4 was within normal limits. COVID, influenza, and RSV testing were negative. Rapid strep test negative. Urinalysis was contaminated, but also somewhat suggestive of infection. Chest x-ray demonstrates a right middle lobe infiltrate. X-ray of the thoracic and lumbar spine reveal mild degenerative changes without any acute process. Findings reviewed with the patient. States that she has had problems with aspiration over the last couple of weeks, and wonders if that may have contributed to the pneumonia. Given the possibility of aspiration pneumonia occurring with UTI, will treat patient with Levaquin and Flagyl to cover for both. Rx for levaquin, Flagyl, and Baclofen for pain/spasms provided with dosing instructions reviewed. Also advised ibuprofen and Tylenol as needed for any additional discomfort. Patient discharged home in stable condition and advised to have close follow-up with her primary care provider. Undiagnosed new problem with uncertain prognosis? @ -None Drug Therapy requiring intensive monitoring for toxicity (Heparin, Nitro, Insulin, Cardizem)? @ -None Were any procedures done? @ -None Diagnosis/symptom? @ -Pneumonia, UTI, arthralgia Acute, or Chronic, or Acute on Chronic? @ -Acute Uncomplicated (without systemic symptoms) or Complicated (systemic symptoms)? @ -Uncomplicated Side effects of treatment? @ -None Exacerbation, Progression, or Severe Exacerbation] @ -Not applicable Poses a threat to life or bodily function? @ -No Return precautions reviewed in depth, the patient is instructed to return to the emergency department with any new, worsening, or concerning symptoms. Patient verbalized understanding. This case was discussed in detail with the attending ED physician, Dr. Russo. Presentation, findings, and treatment plan discussed in detail as well. - Lab Data Result diagrams: 09/17/23 17:55 09/17/23 17:55 Lab Results 09/17/23 09/17/23 09/17/23 Range/Units 17:45 17:45 17:55 WBC 5.2 (3.8-10.6) k/uL RBC 4.66 (3.80-5.40) m/uL Hgb 13.6 (11.4-16.0) gm/dL Hct 42.1 (34.0-46.0) % MCV 90.3 (80.0-100.0) fL MCH 29.1 (25.0-35.0) pg MCHC 32.2 (31.0-37.0) g/dL RDW 13.0 (11.5-15.5) % Plt Count 196 (150-450) k/uL MPV 9.9 Neutrophils % 62 % Lymphocytes % 30 % Monocytes % 4 % Eosinophils % 2 % Basophils % 1 % Neutrophils # 3.3 (1.3-7.7) k/uL Lymphocytes # 1.5 (1.0-4.8) k/uL Monocytes # 0.2 (0-1.0) k/uL Eosinophils # 0.1 (0-0.7) k/uL Basophils # 0.0 (0-0.2) k/uL Sodium (137-145) mmol/L Potassium (3.5-5.1) mmol/L Chloride (98-107) mmol/L Carbon Dioxide (22-30) mmol/L Anion Gap mmol/L BUN (7-17) mg/dL Creatinine (0.52-1.04) mg/dL Est GFR (CKD-EPI)AfAm (>60 ml/min/1.73 sqM) Est GFR (CKD-EPI)NonAf (>60 ml/min/1.73 sqM) Glucose (74-99) mg/dL Plasma Lactic Acid Ujde (0.7-2.0) mmol/L Calcium (8.4-10.2) mg/dL Magnesium (1.6-2.3) mg/dL Total Bilirubin (0.2-1.3) mg/dL AST (14-36) U/L ALT (4-34) U/L Alkaline Phosphatase (38-126) U/L Creatine Kinase (30-135) U/L C-Reactive Protein (<1.0) mg/dL Total Protein (6.3-8.2) g/dL Albumin (3.5-5.0) g/dL TSH (0.465-4.680) mIU/L Free T4 (0.78-2.19) ng/dL Urine Color Light Yellow Urine Appearance Cloudy H (Clear) Urine pH 8.0 (5.0-8.0) Ur Specific [place] 1.026 (1.001-1.035) Urine Protein Trace H (Negative) Urine Glucose (UA) Negative (Negative) Urine Ketones Negative (Negative) Urine Blood Negative (Negative) Urine Nitrite Negative (Negative) Urine Bilirubin Negative (Negative) Urine Urobilinogen <2.0 (<2.0) mg/dL Ur Leukocyte Esterase Large H (Negative) Urine RBC 2 (0-5) /hpf Urine WBC 25 H (0-5) /hpf Ur Squamous Epith Cells 14 H (0-4) /hpf Amorphous Sediment Rare H (None) /hpf Urine Bacteria Occasional H (None) /hpf Urine Mucus Many H (None) /hpf Urine HCG, Qual Not Detected (Not Detectd) Influenza Type A (PCR) (Not Detectd) Influenza Type B (PCR) (Not Detectd) RSV (PCR) (Not Detectd) SARS-CoV-2 (PCR) (Not Detectd) Group A Strep (PCR) (Not Detectd) 09/17/23 09/17/23 09/17/23 Range/Units 17:55 17:55 17:55 WBC (3.8-10.6) k/uL RBC (3.80-5.40) m/uL Hgb (11.4-16.0) gm/dL Hct (34.0-46.0) % MCV (80.0-100.0) fL MCH (25.0-35.0) pg MCHC (31.0-37.0) g/dL RDW (11.5-15.5) % Plt Count (150-450) k/uL MPV Neutrophils % % Lymphocytes % % Monocytes % % Eosinophils % % Basophils % % Neutrophils # (1.3-7.7) k/uL Lymphocytes # (1.0-4.8) k/uL Monocytes # (0-1.0) k/uL Eosinophils # (0-0.7) k/uL Basophils # (0-0.2) k/uL Sodium 141 (137-145) mmol/L Potassium 4.3 (3.5-5.1) mmol/L Chloride 108 H (98-107) mmol/L Carbon Dioxide 25 (22-30) mmol/L Anion Gap 8 mmol/L BUN 10 (7-17) mg/dL Creatinine 0.50 L (0.52-1.04) mg/dL Est GFR (CKD-EPI)AfAm >90 (>60 ml/min/1.73 sqM) Est GFR (CKD-EPI)NonAf >90 (>60 ml/min/1.73 sqM) Glucose 92 (74-99) mg/dL Plasma Lactic Acid Jude 1.0 (0.7-2.0) mmol/L Calcium 9.7 (8.4-10.2) mg/dL Magnesium 1.9 (1.6-2.3) mg/dL Total Bilirubin 0.4 (0.2-1.3) mg/dL AST 29 (14-36) U/L ALT 36 H (4-34) U/L Alkaline Phosphatase 136 H (38-126) U/L Creatine Kinase 55 (30-135) U/L C-Reactive Protein <0.5 (<1.0) mg/dL Total Protein 8.4 H (6.3-8.2) g/dL Albumin 4.8 (3.5-5.0) g/dL TSH (0.465-4.680) mIU/L Free T4 (0.78-2.19) ng/dL Urine Color Urine Appearance (Clear) Urine pH (5.0-8.0) Ur Specific [place] (1.001-1.035) Urine Protein (Negative) Urine Glucose (UA) (Negative) Urine Ketones (Negative) Urine Blood (Negative) Urine Nitrite (Negative) Urine Bilirubin (Negative) Urine Urobilinogen (<2.0) mg/dL Ur Leukocyte Esterase (Negative) Urine RBC (0-5) /hpf Urine WBC (0-5) /hpf Ur Squamous Epith Cells (0-4) /hpf Amorphous Sediment (None) /hpf Urine Bacteria (None) /hpf Urine Mucus (None) /hpf Urine HCG, Qual (Not Detectd) Influenza Type A (PCR) Not Detected (Not Detectd) Influenza Type B (PCR) Not Detected (Not Detectd) RSV (PCR) Not Detected (Not Detectd) SARS-CoV-2 (PCR) Not Detected (Not Detectd) Group A Strep (PCR) (Not Detectd) 09/17/23 09/17/23 Range/Units 17:55 19:16 WBC (3.8-10.6) k/uL RBC (3.80-5.40) m/uL Hgb (11.4-16.0) gm/dL Hct (34.0-46.0) % MCV (80.0-100.0) fL MCH (25.0-35.0) pg MCHC (31.0-37.0) g/dL RDW (11.5-15.5) % Plt Count (150-450) k/uL MPV Neutrophils % % Lymphocytes % % Monocytes % % Eosinophils % % Basophils % % Neutrophils # (1.3-7.7) k/uL Lymphocytes # (1.0-4.8) k/uL Monocytes # (0-1.0) k/uL Eosinophils # (0-0.7) k/uL Basophils # (0-0.2) k/uL Sodium (137-145) mmol/L Potassium (3.5-5.1) mmol/L Chloride (98-107) mmol/L Carbon Dioxide (22-30) mmol/L Anion Gap mmol/L BUN (7-17) mg/dL Creatinine (0.52-1.04) mg/dL Est GFR (CKD-EPI)AfAm (>60 ml/min/1.73 sqM) Est GFR (CKD-EPI)NonAf (>60 ml/min/1.73 sqM) Glucose (74-99) mg/dL Plasma Lactic Acid Jude (0.7-2.0) mmol/L Calcium (8.4-10.2) mg/dL Magnesium (1.6-2.3) mg/dL Total Bilirubin (0.2-1.3) mg/dL AST (14-36) U/L ALT (4-34) U/L Alkaline Phosphatase (38-126) U/L Creatine Kinase (30-135) U/L C-Reactive Protein (<1.0) mg/dL Total Protein (6.3-8.2) g/dL Albumin (3.5-5.0) g/dL TSH 0.421 L (0.465-4.680) mIU/L Free T4 1.26 (0.78-2.19) ng/dL Urine Color Urine Appearance (Clear) Urine pH (5.0-8.0) Ur Specific [place] (1.001-1.035) Urine Protein (Negative) Urine Glucose (UA) (Negative) Urine Ketones (Negative) Urine Blood (Negative) Urine Nitrite (Negative) Urine Bilirubin (Negative) Urine Urobilinogen (<2.0) mg/dL Ur Leukocyte Esterase (Negative) Urine RBC (0-5) /hpf Urine WBC (0-5) /hpf Ur Squamous Epith Cells (0-4) /hpf Amorphous Sediment (None) /hpf Urine Bacteria (None) /hpf Urine Mucus (None) /hpf Urine HCG, Qual (Not Detectd) Influenza Type A (PCR) (Not Detectd) Influenza Type B (PCR) (Not Detectd) RSV (PCR) (Not Detectd) SARS-CoV-2 (PCR) (Not Detectd) Group A Strep (PCR) NOT DETECTED (Not Detectd) - Radiology Data Radiology results: report reviewed, image reviewed Disposition Clinical Impression: Pneumonia, Arthralgia, UTI (urinary tract infection) Disposition: HOME SELF-CARE Instructions (If sedation given, give patient instructions): Urinary Tract Infection in Women (ED), Arthralgia (ED), Pneumonia (ED) Additional Instructions: Return to the emergency department with any new, worsening, or concerning symptoms. Take the Levaquin and Flagyl as prescribed. You can take the baclofen up to 3 times daily to see if that helps with your muscle pain/tightness. Be aware that this may make you drowsy. Alternate with ibuprofen and Tylenol as needed for any additional pain relief. Follow up with your primary care provider as scheduled. Prescriptions: Amoxicillin 500 mg PO Q8H #30 capsule Baclofen 10 mg PO TID PRN #20 tab PRN Reason: Pain metroNIDAZOLE [Flagyl] 500 mg PO TID 7 Days #21 tab Levofloxacin [Levaquin] 750 mg PO DAILY 5 Days #5 tab Is patient prescribed a controlled substance at d/c from ED?: No Referrals: Toshia Martínez [Primary Care Provider] - 1-2 days Time of Disposition: 20:45
[2023-09-17 18:21] LABS: Amorphous Sediment,Urine Rare /hpf; Appearance,Urine Cloudy (Clear); Bacteria,Urine Occasional /hpf; Bilirubin,Urine Negative (Negative); Blood,Urine Negative (Negative); Color,Urine Light Yellow; Glucose,Urine (UA) Negative (Negative); Ketones,Urine Negative (Negative); Leukocyte Esterase,Urine Large (Negative); Mucus,Urine Many /hpf; Nitrite,Urine Negative (Negative); Protein,Urine Trace (Negative); RBC,Urine 2 /hpf (0-5); Specific Gravity,Urine 1.026 (1.001-1.035); Squamous Epithelial Cell,Urine 14 /hpf (0-4); Urobilinogen,Urine <2.0 mg/dL (<2.0); WBC,Urine 25 /hpf (0-5)
[2023-09-17 18:23] LABS: ALT 36 U/L (4-34); AST 29 U/L (14-36); African American GFR (CKD) >90 (>60 ml/min/1.73 sqM); Albumin 4.8 g/dL (3.5-5.0); Alkaline Phosphatase 136 U/L (38-126); Anion Gap 8 mmol/L; Blood Urea Nitrogen 10 mg/dL (7-17); C Reactive Protein <0.5 mg/dL (<1.0); Calcium 9.7 mg/dL (8.4-10.2); Carbon Dioxide 25 mmol/L (22-30); Chloride 108 mmol/L (98-107); Creatine Kinase 55 U/L (30-135); Glucose 92 mg/dL (74-99); Magnesium 1.9 mg/dL (1.6-2.3); Non-African American GFR(CKD) >90 (>60 ml/min/1.73 sqM); Potassium 4.3 mmol/L (3.5-5.1); Sodium 141 mmol/L (137-145); Total Bilirubin 0.4 mg/dL (0.2-1.3); Total Protein 8.4 g/dL (6.3-8.2)
[2023-09-17 19:08] VITALS: RESP 18
[2023-09-17] MEDS: ORPHENADRINE 30 MG/ML 2 ML VIAL IVP STA (19:16)
--- NOTE | 2023-09-17 19:55 | XR ---
EXAMINATION TYPE: XR chest 2V DATE OF EXAM: 09/17/2023 7:36 PM CLINICAL INDICATION:Female, 28 years old with history of Pain; [facility] COMPARISON: None TECHNIQUE: XR chest 2V Frontal and lateral views of the chest. FINDINGS: Lungs/Pleura: Right middle lobe airspace opacities. There is no evidence of pleural effusion, focal c onsolidation, or pneumothorax. Pulmonary vascularity: Unremarkable. Heart/mediastinum: Cardiomediastinal silhouette is unremarkable. Musculoskeletal: No acute osseous pathology. IMPRESSION: Right middle lobe airspace opacities correlate for pneumonia.e
--- NOTE | 2023-09-17 19:56 | XR ---
EXAMINATION TYPE: XR thoracic spine complete DATE OF EXAM: 09/17/2023 7:36 PM CLINICAL INDICATION:Female, 28 years old with history of Pain; COMPARISON: None TECHNIQUE: XR thoracic spine complete views of the spine in Frontal and lateral projections. FINDINGS: No evidence of acute fracture. There is no evidence of disk space narrowing or loss of vertebral bod y height. There is normal alignment of the thoracic vertebral bodies. Minimal degeneration changes wi th small osteophytes noted throughout the spine. Right middle lobe airspace opacities are better appr eciated on same day's chest radiograph. IMPRESSION: 1. No acute osseous pathology. 2. Minimal degeneration changes throughout the spine.
--- NOTE | 2023-09-17 19:59 | XR ---
EXAMINATION TYPE: XR lumbar spine 2 or 3V DATE OF EXAM: 09/17/2023 7:36 PM CLINICAL INDICATION:Female, 28 years old with history of Pain; [facility] COMPARISON: None TECHNIQUE: XR lumbar spine 2 or 3V - Frontal, lateral and coned in L5-S1 lateral views of the spine. FINDINGS: No evidence of any acute osseous pathology. No evidence of loss of vertebral body height i s seen. There is normal alignment of the lumbar vertebral bodies. Mild degeneration changes with oste ophyte formation scattered throughout the spine. Neural foramen and spinal canal appear patent. IMPRESSION: 1. No acute fracture. 2. Mild multilevel disc degeneration.
[2023-09-17 20:15] LABS: T4, Free (Free Thyroxine) 1.26 ng/dL (0.78-2.19)
[2023-09-17] MEDS: metroNIDAZOLE 500 MG TAB PO STA (20:54)
[2023-09-17] MEDS: LEVOFLOXACIN 750 MG TAB PO STA (20:54)
[2023-09-17 21:07] VITALS: BP 115/82; PULSE 90; TEMP 98
== END 2023-09-17 21:04 | disposition home or self-care (01) ==
LOC: EC 17:24
DX: N39.0 Urinary tract infection, site not specified (principal); J18.9 Pneumonia, unspecified organism; M51.36 Other intervertebral disc degeneration, lumbar region; M51.34 Other intervertebral disc degeneration, thoracic region; M25.50 Pain in unspecified joint; Z88.1 Allergy status to other antibiotic agents; Z88.2 Allergy status to sulfonamides; Z91.011 Allergy to milk products; Z87.891 Personal history of nicotine dependence
CPT/HCPCS: 36415; 87651; 84439; 80053; 84443; 82550; 83605; 83735; 85025; 86140; 81001; 81025; 87636; 72072; 72100; 71046; 99284; 96374; 96375 ×2; 96361 ×3; J1100; J2360; J1885

== ENCOUNTER 2023-09-19 15:15 | Emergency (ER) | payer OTHER ==
--- NOTE | 2023-09-19 16:06 | ED ---
Recheck HPI - General Chief Complaint: Abdominal Pain Stated Complaint: confused/tired and pain in upper body Time Seen by Provider: 09/19/23 15:24 Source: patient, RN notes reviewed, old records reviewed Mode of arrival: ambulatory Limitations: no limitations - History of Present Illness Initial Comments: This is a 28-year-old female to the ER for evaluation of multiple complaints back pain chest pain abdominal pain. Occasional cough and congestion no travel history no sick contacts mild nausea no vomiting. Patient has known pneumonia is having severe left-sided rib pain MD Complaint: other (Pneumonia) -: days(s) Returns Today for: needs IV antibiotics, persistent/worsening pain related to initial visit Symptoms Since Prior Visit: worsening pain Context: called for abnormal lab result Associated Symptoms: none Treatments Prior to Arrival: Given Antibiotics on, Given Pain Meds on - Related Data Home Medications Medication Instructions Recorded Confirmed Vit No.179/Iron/Folic 02/28/23 [ Tablet] diphenhydrAMINE [Benadryl] 50 mg PO DIRECTED PRN 02/28/23 02/28/23 Previous Rx's Medication Instructions Recorded Acetaminophen Tab [Tylenol] 650 mg PO Q6H PRN #30 tab 03/02/23 Ferrous Sulfate [Iron (65 MG 325 mg PO DAILY #30 tab 03/02/23 Elemental)] Ibuprofen [Motrin] 600 mg PO Q6HR PRN #30 tab 03/02/23 Baclofen 10 mg PO TID PRN #20 tab 09/17/23 Levofloxacin [Levaquin] 750 mg PO DAILY 5 Days #5 tab 09/17/23 metroNIDAZOLE [Flagyl] 500 mg PO TID 7 Days #21 tab 09/17/23 Amoxicillin 500 mg PO Q8H #30 capsule 09/18/23 Amoxic-Pot Clav 875-125Mg 1 tab PO Q12HR #20 tablet 09/19/23 [Augmentin 875-125] Ketorolac [Toradol] 10 mg PO Q6HR #20 tab 09/19/23 Allergies Allergy/AdvReac Type Severity Reaction Status Date / Time sulfamethoxazole Allergy Severe Rash/Hives Verified 09/17/23 17:31 [From Bactrim] trimethoprim [From Bactrim] Allergy Severe Rash/Hives Verified 09/17/23 17:31 Milk Containing Products Allergy Vomiting Verified 09/17/23 17:31 (Dairy) [Dairy] Review of Systems ROS Statement: Those systems with pertinent positive or pertinent negative responses have been documented in the HPI. ROS Other: All systems not noted in ROS Statement are negative. Past Medical History Past Medical History: No Reported History Additional Past Medical History / Comment(s): frequent UTI History of Any Multi-Drug Resistant Organisms: None Reported Past Surgical History: No Surgical Hx Reported Past Psychological History: Anxiety, Bipolar, Depression Smoking Status: Former smoker Past Alcohol Use History: Occasional Past Drug Use History: Marijuana - Past Family History family Additional Family Medical History / Comment(s): alcohol abuse father General Exam Limitations: no limitations General appearance: alert, in no apparent distress Head exam: Present: atraumatic, normocephalic, normal inspection Eye exam: Present: normal appearance, PERRL, EOMI. Absent: scleral icterus, conjunctival injection, periorbital swelling ENT exam: Present: normal exam, mucous membranes moist Neck exam: Present: normal inspection. Absent: tenderness, meningismus, lymphadenopathy Respiratory exam: Present: normal lung sounds bilaterally. Absent: respiratory distress, wheezes, rales, rhonchi, stridor Cardiovascular Exam: Present: regular rate, normal rhythm, normal heart sounds. Absent: systolic murmur, diastolic murmur, rubs, gallop, clicks GI/Abdominal exam: Present: soft, normal bowel sounds. Absent: distended, tenderness, guarding, rebound, rigid Extremities exam: Present: normal inspection, full ROM, normal capillary refill. Absent: tenderness, pedal edema, joint swelling, calf tenderness Back exam: Present: normal inspection Neurological exam: Present: alert, oriented X3, CN II-XII intact Psychiatric exam: Present: normal affect, normal mood Skin exam: Present: warm, dry, intact, normal color. Absent: rash Course Vital Signs 09/19/23 09/19/23 15:18 16:41 Temperature 97.5 F L 98.2 F Pulse Rate 72 76 Respiratory 20 18 Rate Blood Pressure 130/85 126/82 O2 Sat by Pulse 98 100 Oximetry - Reevaluation(s) Reevaluation #1: Medical record is reviewed Reevaluation #2: Patient symptoms are unchanged but improving Reevaluation #3: Patient informed of results and questions answered Reevaluation #4: Was pt. sent in by a medical professional or institution (, PA, DEPUTY SHERIFF GENERALIST/BAILIFF, urgent care, hospital, or intermediate...) When possible be specific @ -no Did you speak to anyone other than the patient for history (EMS, parent, family, police, friend...)? What history was obtained from this source @ -no Did you review nursing and triage notes (agree or disagree)? Why? @ -agree Are old charts reviewed (outside hosp., previous admission, EMS record, old EKG, old radiological studies, urgent care reports/EKG's, intermediate records)? Report findings @ -yes Differential Diagnosis (chest pain, altered mental status, abdominal pain women, abdominal pain men, vaginal bleeding, weakness, fever, dyspnea, syncope, headache, dizziness, GI bleed, back pain, seizure, CVA, palpatations, mental health, musculoskeletal)? @ -prior EKG interpreted by me (3pts min.). @ -no X-rays interpreted by me (1pt min.). @ -no CT interpreted by me (1pt min.). @ -no U/S interpreted by me (1pt. min.). @ -no What testing was considered but not performed or refused? (CT, X-rays, U/S, labs)? Why? @ -none What meds were considered but not given or refused? Why? @ -none Did you discuss the management of the patient with other professionals (professionals i.e. TRENT Cheung, DEPUTY SHERIFF GENERALIST/BAILIFF, lab, RT, psych nurse, social work associate, roof promenade tile setter, teacher, field health officer, pillowcase folder)? Give summary @ -no Was smoking cessation discussed for >3mins.? @ -no Was critical care preformed (if so, how long)? @ -no Were there social determinants of health that impacted care today? How? (Homelessness, low income, unemployed, alcoholism, drug addiction, transportation, low edu. Level, literacy, decrease access to med. care, long-term, rehab)? @ -none Was there de-escalation of care discussed even if they declined (Discuss DNR or withdrawal of care, Hospice)? DNR status @ -no What co-morbidities impacted this encounter? (DM, HTN, Smoking, COPD, CAD, Cancer, CVA, ARF, Chemo, Hep., AIDS, mental health diagnosis, sleep apnea, morbid obesity)? @ -none Was patient admitted / discharged? Hospital course, mention meds given and route, prescriptions, significant lab abnormalities, going to OR and other pertinent info. @ - 28 female to ER for evaluation abdominal pain, rib pain flank pain. Known history of pneumonia patient is in no acute distress pain is controlled she can be discharged home Discharge Undiagnosed new problem with uncertain prognosis? @ -no Drug Therapy requiring intensive monitoring for toxicity (Heparin, Nitro, Insulin, Cardizem)? @ -no Were any procedures done? @ -no Diagnosis/symptom? @ -Chest pain pneumonia Acute, or Chronic, or Acute on Chronic? @ -Acute Uncomplicated (without systemic symptoms) or Complicated (systemic symptoms)? @ -Complicated Side effects of treatment? @ -no Exacerbation, Progression, or Severe Exacerbation? @ -exacerbation Poses a threat to life or bodily function? How? (Chest pain, [place], [place], pneumonia, PE, COPD, DKA, ARF, appy, cholecystitis, CVA, Diverticulitis, Homicidal, Suicidal, threat to staff... and all critical care pts) @ -no Medical Decision Making - Medical Decision Making 28 female to ER for evaluation abdominal pain, rib pain flank pain. Known history of pneumonia patient is in no acute distress pain is controlled she can be discharged home Disposition Clinical Impression: Anxiety disorder, Abdominal pain, Back pain, Pneumonia Disposition: HOME SELF-CARE Condition: Good Instructions (If sedation given, give patient instructions): Community Acquired Pneumonia (ED), Musculoskeletal Pain (ED) Prescriptions: Amoxic-Pot Clav 875-125Mg [Augmentin 875-125] 1 tab PO Q12HR #20 tablet Ketorolac [Toradol] 10 mg PO Q6HR #20 tab Is patient prescribed a controlled substance at d/c from ED?: No Referrals: Toshia Martínez [Primary Care Provider] - 1-2 days
[2023-09-19] MEDS: ACET/COD 300 MG/30 MG STARTER PACK 6 TAB BTL PO STA (16:35)
[2023-09-19] MEDS: IBUPROFEN 600 MG STARTER PACK 4 TAB BTL PO STA (16:36)
[2023-09-19] MEDS: AMOXIC-POT CLAV 875-125MG 1 EACH TAB PO STA (16:36)
[2023-09-19] MEDS: AMOXIC-POT CLAV 875MG STARTER PACK 2 TAB BTL PO STA (16:36)
[2023-09-19] MEDS: KETOROLAC 15 MG/ML 1 ML VIAL IM STA (16:37)
[2023-09-19] MEDS: Acetaminophen-Codeine 300-30mg TAB PO STA (16:37)
[2023-09-19 17:04] VITALS: BP 126/82; PULSE 76; RESP 18; TEMP 98.2
== END 2023-09-19 17:02 | disposition home or self-care (01) ==
LOC: EC 15:15
DX: J18.9 Pneumonia, unspecified organism (principal); R10.9 Unspecified abdominal pain; F41.9 Anxiety disorder, unspecified; M54.9 Dorsalgia, unspecified; Z87.891 Personal history of nicotine dependence; Z88.2 Allergy status to sulfonamides; Z88.1 Allergy status to other antibiotic agents; Z91.011 Allergy to milk products
CPT/HCPCS: 99284